=== PATIENT | female | born 1980 | race African-American/Black ===

== ENCOUNTER 2020-01-28 08:55 | Outpatient (CLI) | payer OTHER | END 2020-01-28 22:24 | disposition home or self-care (01) | LOC: MAMMO 08:55 | DX: Z12.31 Encounter for screening mammogram for malignant neoplasm of breast (principal) ==

== ENCOUNTER 2020-02-04 09:28 | Outpatient (CLI) | payer OTHER | END 2020-02-04 20:27 | disposition home or self-care (01) | LOC: US 09:28 | DX: R92.8 Other abnormal and inconclusive findings on diagnostic imaging of breast (principal) ==

== ENCOUNTER 2021-06-17 13:46 | Emergency (ER) | payer OTHER ==
[~2021-06-17] VITALS: Ht 157.5 cm; Wt 81.6 kg
[2021-06-17 13:46] VITALS: TEMP 97.8
[2021-06-17 16:00] VITALS: BP 124/66
== END 2021-06-17 16:18 | disposition home or self-care (01) ==
LOC: ED 13:50
DX: T78.2XXA Anaphylactic shock, unspecified, initial encounter (principal); T40.2X1A Poisoning by other opioids, accidental (unintentional), initial encounter; Y92.89 Other specified places as the place of occurrence of the external cause
CPT/HCPCS: 96372; 96374; 96375; 99284; J0171; J1200; J2930